=== PATIENT | male | born 1965 | race Caucasian/White ===

== ENCOUNTER → 2023-11-30 07:17 | Outpatient (REF) | payer BC, SELFPAY | LOC: MRI 07:17 | PROVIDERS: ATTENDING PHYSICIAN Surgery; FAMILY PHYSICIAN Nurse Practitioner Adult Health | DX: R97.20 Elevated prostate specific antigen [PSA] (principal) | CPT/HCPCS: 72197; A9575 ==

== ENCOUNTER → 2024-12-20 08:24 | Outpatient (REF) | payer BC, SELFPAY | LOC: MRI 08:24 | PROVIDERS: ATTENDING PHYSICIAN Surgery; FAMILY PHYSICIAN Nurse Practitioner Adult Health | DX: R97.20 Elevated prostate specific antigen [PSA] (principal) | CPT/HCPCS: 72197; A9575 ==